=== PATIENT | male | born 1980 | race Caucasian/White ===

== ENCOUNTER 2022-04-23 19:10 | Emergency (ER) | payer MEDICAID, SELFPAY ==
[2022-04-23 19:13] VITALS: BP 129/82; PULSE 87; RESP 16; TEMP 36.7; O2SAT 96; BMI 24.3
[2022-04-23 22:35] VITALS: BP 0/0; PULSE 0; RESP 0; TEMP -17.7; TEMP 0; O2SAT 0
== END 2022-04-23 22:37 | disposition left against medical advice (07) ==
PROVIDERS: Emergency Provider Emergency Medicine
DX: Z53.21 Procedure and treatment not carried out due to patient leaving prior to being seen by health care provider (principal); Z76.0 Encounter for issue of repeat prescription
CPT/HCPCS: 99211